=== PATIENT | male | born 1985 | race Two or more races ===

== ENCOUNTER 2024-07-02 16:26 | Emergency (ER) | payer SELFPAY ==
[2024-07-02 16:36] VITALS: BP 132/90; PULSE 74; RESP 17; TEMP 36.5; O2SAT 97; BMI 27.1
--- NOTE | 2024-07-02 16:44 | XR_ITS ---
Examination: Shoulder,left, 3 views Technique: Shoulder AP internal rotation, AP external rotation, Y view shoulder, 3 views Exam date and time :July 02, 2024 1655 hrs. Indications: Patient fell off horse today with into the shoulder, shoulder pain Findings: Anterior subcoracoid shoulder dislocation There do appear to be small fracture fragments adjacent to the bony glenoid fossa, probably of the humeral head Impression: Anterior subcoracoid shoulder dislocation
--- NOTE | 2024-07-02 16:45 | EDNOTE_ITS ---
Upper Extremity Injury RME/HPI General Chief Complaint: Extremity Injury, Upper Stated Complaint: LEFT ARM INJURY S/P FALL OFF HORSE Time Seen by Provider: 07/02/24 16:35 Arrival date/time: 07/02/24 16:26 RME / HPI RME / HPI narrative: 39-year-old male patient came in for evaluation regarding left shoulder pain. Patient fell off the horse, injury happened few minutes prior to ER visit, patient is complaining of pain to the left shoulder, unable to move, severity moderate. Patient denies any head injury neck pain or other injury patient is ambulatory. Related Data Previous Rx's ?Medication ?Instructions ?Recorded ibuprofen 800 mg tablet 800 mg PO TID PRN pain #30 tabs 07/02/24 Allergies Allergy/AdvReac Type Severity Reaction Status Date / Time No Known Allergies Allergy Verified 07/02/24 16:29 Review of Systems Review of Systems Narrative Review of Systems: Review of system reviewed and within normal limits except mentioned in HPI ED Exam Narrative Physical exam: VITAL SIGNS: Reviewed. GENERAL APPEARANCE: Alert and interactive, follows commands, no acute distress, HEAD AND FACE: Non-traumatic. ENT: PERRL, pink conjunctivitis, eyelid no trauma, Mucous membrane moist. NECK: Supple, nontender, no nuchal rigidity. CHEST: No tenderness, no crepitus, no paradoxical movement, no retractions. LUNGS: Clear, well ventilated, symmetric, no rales, no wheezing, no ronchi, no stridor, good breath sounds bilaterally. HEART: Regular rate, regular rhythm, no murmur, no gallops. ABDOMEN: Soft, positive bowel sounds, nondistended, no guarding, nontender, no rebound, no masses, RECTAL: Deferred. GENITAL: Deferred. NEUROLOGICAL: Gross motor function intact sensory function intact, Appropriate for age. MUSCULOSKELETAL: low back nontender, full range of motion. EXTREMITIES: Loss of deltoid mass on the left, tenderness to the left shoulder, limitation range of motion. Distal neurovascular status intact on the left upper extremity SKIN: Color pink, dry, no rash, no lacerations, no abrasions, no contusions. LYMPHATICS: Deferred. Course Quality Measures none Orders Category Date Time Status XR shoulder LT min 2V Stat Exams 07/02/24 16:44 Taken XR shoulder LT min 2V Stat Exams 07/02/24 17:45 Taken Etomidate Inj [Amidate Inj] Med 07/02/24 17:14 Discontinued 10 mg IVP X1 ONE Morphine Inj Med 07/02/24 16:44 Discontinued 4 mg IVP X1 ONE Ondansetron Inj [Zofran Inj] Med 07/02/24 16:44 Discontinued 4 mg IV X1 ONE Sodium Chloride 0.9% 1000 ml [Ns] 1,000 ml Med 07/02/24 17:14 Discontinued IV 999 mls/hr fentaNYL INJ [Sublimaze Inj] Med 07/02/24 17:14 Discontinued 50 mcg IVP X1 ONE Vital Signs Vital signs: Vital Signs Temperature 97.7 F 07/02/24 16:36 Pulse Rate 74 07/02/24 16:36 Respiratory Rate 17 07/02/24 16:36 Blood Pressure 132/90 H 07/02/24 16:36 Pulse Oximetry (%) 97 07/02/24 16:36 Oxygen Delivery Method Room Air 07/02/24 16:36 Procedures -ED Orthopedic Joint Reduction Joint #1: Time Out Performed: Yes Side: Left Joint Reduction Location: shoulder Analgesia: procedural sedation Shoulder Technique Used (if applicable): external rotation Technique used: traction/counter-traction Post-reduction neuro exam: intact and no change Post-reduction vascular: intact and no change Post Reduction X-Ray Obtained: Yes Post Reduction X-Ray Results: reduced Additional Comments: Patient tolerated the procedure well. Extremity Injury MDM Narrative MDM Narrative:: X-ray of the left shoulder showed anterior shoulder dislocation with possible avulsion fracture of the head of the humerus, mild Close reduction was done by me, procedural sedation was done by Dr. Britton. Patient tolerated the procedure well. See procedure notes. Patient was placed on a sling Postreduction x-ray showed complete reduction of the dislocation. Patient data External records reviewed:: None Clinical information provided by:: patient Social determinants that could affect healthcare access:: none Patient has the following chronic illnesses:: None How is presenting disease/condition affected by chronic disease/condition?: no chronic disease Evaluation data The following diagnostics were reviewed and interpreted by me:: radiology exam(s) Lab and/or radiology exams considered but not ordered:: None Interpretation Summary: Initial x-ray of the shoulder showed anterior shoulder dislocation with possible small chip fracture of the head of the humerus. Postreduction x-ray showed shoulder in complete reduction. Medications / Prescriptions Medications or Prescriptions considered but not ordered:: None Medication administrations:: Medication Administration History Discontinued Medications Etomidate (Etomidate Inj 2 Mg/Ml Vial 10 Ml) 10 mg IVP X1 ONE Stop: 07/02/24 17:15 Last Admin: 07/02/24 17:36 Dose: 10 mg Documented By: DIONNE Fentanyl Citrate (Fentanyl Cit Inj 50 Mcg/Ml Amp 2ml) 50 mcg IVP X1 ONE Stop: 07/02/24 17:15 Last Admin: 07/02/24 17:38 Dose: 50 mcg Documented By: DIONNE Sodium Chloride (Ns) 1,000 mls @ 999 mls/hr IV .Q1H1M ONE Stop: 07/02/24 18:14 Last Admin: 07/02/24 17:37 Dose: 999 mls/hr Documented By: DIONNE Morphine Sulfate (Morphine Sulf Inj 10 Mg/Ml Vial) 4 mg IVP X1 ONE Stop: 07/02/24 16:45 Last Admin: 07/02/24 16:52 Dose: 4 mg Documented By: DIONNE Ondansetron HCl (Ondansetron Inj 2 Mg/Ml Inj 2 Ml) 4 mg IV X1 ONE; Protocol Stop: 07/02/24 16:45 Last Admin: 07/02/24 16:51 Dose: 4 mg Documented By: DIONNE IV fluids for addition, morphine Zofran, fentanyl and etomidate total of 15 mg IV Consultations Consultation(s) initiated? (list below): No Diagnosis Upper Extremity Injury Differential Diagnosis: dislocation of shoulder, fracture of humerus and fracture of clavicle Most likely diagnosis given after review of the tests above:: Anterior shoulder dislocation Admission Indicated Admission indicated?: not indicated Explain why admission is indicated or not indicated:: Stable Admission Request Was there a request for admission?: No Disposition Plan Disposition Plan: Discharge Discharge Attestation Discharge Attestation: The patient was given an opportunity to ask questions and understood the discharge instructions. Discharge instructions specifically effects, indications for sooner follow up or return to the emergency department, and the expected course of current diagnosis. Patient condition: Stable Discharge Plan Plan Patient Disposition: HOME (Self Care) Disposition Comment: stable Prescriptions/Referrals Prescriptions/Med Rec: New ibuprofen 800 mg tablet 800 mg PO TID PRN (Reason: pain) Qty: 30 0RF Problem List Clinical Impression: Anterior shoulder dislocation Patient/Caregiver Discharge Instructions Discharge Activity: activity as tolerated Education Materials: ED Dislocation: Shoulder (Reduced) Additional Instructions: Thank you for the opportunity for serving you today. You are stable for discharged . You are advised to: Follow-up with your PCP in 1 to 2 days and asked for referral to orthopedic surgeon Wear your arm sling for the next 2 weeks Return to ED for worsening of symptoms Increase oral fluids Take medication as prescribed Print Language: Ukrainian Stand Alone Forms: [facility] Award Info., Patient Portal Info Letter MARIANA/THOM Supervising Physician MARIANA/THOM Supervising Physician: MD Reba
[2024-07-02] MEDS: ONDANSETRON INJ 2 MG/ML INJ 2 ML 4 MG IV (16:51)
[2024-07-02] MEDS: MORPHINE SULF INJ 10 MG/ML VIAL 4 MG IVP ×2 (16:52→18:49)
[2024-07-02] MEDS: ETOMIDATE INJ 2 MG/ML VIAL 10 ML 10 MG IVP (17:36)
[2024-07-02] MEDS: SODIUM CHLORIDE 0.9% 1000 ML 1,000 ML 999 ML IV (17:37)
[2024-07-02] MEDS: fentaNYL CIT INJ 50 mCg/ML AMP 2ML IVP (17:38)
--- NOTE | 2024-07-02 17:45 | XR_ITS ---
Examination: Shoulder,left, 3 views Technique: Shoulder AP internal rotation, AP external rotation, Y view shoulder, 3 views Exam date and time :July 02, 2024 1557 hrs. Indications: Shoulder dislocation July 02, 2020 10/25/1949 5:00 PM post reduction Findings: Satisfactory reduction shoulder dislocation Calcific tendinitis Impression: Satisfactory reduction shoulder dislocation
[2024-07-02 18:24] VITALS: BP 135/95; PULSE 74; RESP 19; TEMP 36.9; O2SAT 100
[2024-07-02 22:48] VITALS: PULSE 97; RESP 18; O2SAT 99
== END 2024-07-02 19:02 | disposition home or self-care (01) ==
PROVIDERS: Emergency Provider Emergency Medicine; PCP Family Medicine
DX: S43.015A Anterior dislocation of left humerus, initial encounter (principal); V80.010A Animal-rider injured by fall from or being thrown from horse in noncollision accident, initial encounter; Y93.52 Activity, horseback riding
CPT/HCPCS: 23650; 73030; 96361; 96374; 96375; 96376; 99285; A4565; J2270; J2405; J3010; J3490; J7030